=== PATIENT | male | born 1955 | race Caucasian/White ===

== ENCOUNTER → 2025-03-24 | Outpatient (CLI) | payer BC, MEDICARE ==
[2025-03-24] MEDS: LEXISCAN IV ONE (10:28)
== END | disposition home or self-care (01) ==
LOC: RAD 07:51
PROVIDERS: ATTEND Internal Medicine
DX: Z01.810 Encounter for preprocedural cardiovascular examination (principal); I70.213 Atherosclerosis of native arteries of extremities with intermittent claudication, bilateral legs; I87.2 Venous insufficiency (chronic) (peripheral)
CPT/HCPCS: 78452; 93970; 93925; 76770; 93922; 93017; J2785; A9500